=== PATIENT | male | born 1940 | race Caucasian/White ===

== ENCOUNTER 2022-07-21 18:04 | Emergency (ER) | payer MEDICARE, OTHER ==
[2022-07-21] MEDS ORDERED: Acetaminophen 500 MG TAB ONE (20:14)
[2022-07-21 20:22] LABS: Hemoglobin 13.6 g/dL (14.0-18.0); Mean Corpuscular Volume 85.3 fl (78.0-98.0); Red Blood Cell (RBC) Count 5.23 mill/uL (4.70-6.10); White Blood Cell (WBC) Count 6.9 10x3/uL (4.8-10.8)
[2022-07-21 20:23] LABS: #Basophils 0.1 thou/uL (0.0-0.2); #Eosinphils 0.1 thou/uL (0.0-0.7); #Lymphocytes 0.4 thou/uL (1.20-3.40); #Monocytes 0.6 thou/uL (0.11-0.59); #Neutrophils 5.6 thou/uL (1.40-6.50); %Basophils 1.5 % (0.0-1.0); %Eosinophils 1.8 % (0.0-10.0); %Lymphocytes 6.4 % (21.0-51.0); %Neutrophils 81.2 % (42.0-75.0); Mean Corpuscular HGB CONC 30.5 g/dL (32.0-36.0); Mean Platelet Volume 9.3 fL (7.4-10.4); Platelet Count 129 10x3/uL (130-400)
[2022-07-21 20:24] LABS: ALT (SGPT) 17 U/L (8-55); AST (SGOT) 25 U/L (5-34); Albumin 3.6 g/dL (3.4-4.8); Alkaline Phosphatase 65 U/L (40-110); Anion Gap 15 mmol/L (10-20); BUN (Urea Nitrogen) 14 mg/dL (8.4-25.7); Bilirubin, Total 0.5 mg/dL (0.2-1.2); Calc. Creatinine Clearance 0 mL/min (70-130); Calcium 9.7 mg/dL (7.8-10.44); Carbon Dioxide 23 mmol/L (23-31); Chloride 103 mmol/L (98-107); Estimated GFR 76; Globulin 2.9 g/dL (2.4-3.5); Glucose 121 mg/dL (83-110); Potassium 4.6 mmol/L (3.5-5.1); Protein, Total 6.5 g/dL (5.8-8.1); Sodium 136 mmol/L (136-145)
[2022-07-21 21:01] LABS: Bilirubin Small (Negative); Blood, Urine Large (Negative); Clarity Cloudy (Clear); Glucose, Urine (Dipstick) 250 mg/dL (Negative); Ketone, Urine Trace mg/dL (Negative); Leukocyte Small (Negative); Nitrite Negative (Negative); Protein, Urine (Dipstick) Trace mg/dL (Neg-Trace); Urobilinogen 0.2 mg/dL (Less than 2)
[2022-07-21 21:06] LABS: RBC/HPF Greater than 50 HPF (0-3); Squamous Epithelial None Seen HPF (0-3)
[2022-07-21 21:07] LABS: Bacteria/HPF Rare-Few HPF (None Seen)
[2022-07-21 21:09] LABS: Yeast-Budding 1+ HPF (None Seen)
[2022-07-21] MEDS ORDERED: Cipro 250 MG TAB ONE (21:12)
== END 2022-07-21 21:28 | disposition home or self-care (01) ==
LOC: NAV ERS 18:04
DX: N39.0 Urinary tract infection, site not specified (principal); N40.1 Benign prostatic hyperplasia with lower urinary tract symptoms; R33.8 Other retention of urine; E78.00 Pure hypercholesterolemia, unspecified
CPT/HCPCS: 36415; 51702; 80053; 81001; 83605; 85025; 87040; 87086